=== PATIENT | female | born 1960 | race Caucasian/White ===

== ENCOUNTER 2019-01-21 08:42 | Day surgery (SDC) | payer BC ==
[2019-01-21 11:08] LABS: Performing Lab VERACYTE; Test Name FNA
== END 2019-01-21 22:37 | disposition home or self-care (01) ==
LOC: US 08:42
PROVIDERS: Family Medicine
PROC: BG44ZZZ Ultrasonography of Thyroid Gland (ICD-10-PCS; principal; 2019-01-21)
PROC: 0GBH3ZX Excision of Right Thyroid Gland Lobe, Percutaneous Approach, Diagnostic (ICD-10-PCS; principal; 2019-01-21)
DX: E04.1 Nontoxic single thyroid nodule (principal)
CPT/HCPCS: 10005; 76942

== ENCOUNTER 2019-06-18 14:52 | Emergency (ER) | payer BC ==
[~2019-06-18] VITALS: Ht 175.3 cm; Wt 122.5 kg
[2019-06-18] MEDS ORDERED: IBUP400 PO (15:14)
[2019-06-18] MEDS ORDERED: OMEP20ER PO (15:14)
[2019-06-18] MEDS ORDERED: DULO60 PO (15:14)
[2019-06-18] MEDS ORDERED: Synthroid88 MCG PO (15:14)
[2019-06-18] MEDS ORDERED: CETI5 PO (15:14)
[2019-06-18 15:30] LABS: BASOPHILS ABSOLUTE AUTO 0.04 K/mm3 (0.00-0.23); BASOPHILS PERCENT AUTO 0 % (0-2); EOSINOPHILS ABSOLUTE AUTO 0.08 K/mm3 (0.00-0.68); EOSINOPHILS PERCENT AUTO 1 % (0-6); Hematocrit 39.2 % (33.0-51.0); Hemoglobin 12.6 g/dL (11.5-16.0); IMMATURE GRAN ABSOLUTE AUTO 0.03 K/mm3 (0.00-0.10); IMMATURE GRAN PERCENT AUTO 0 % (0-1); LYMPHOCYTES ABSOLUTE AUTO 1.07 K/mm3 (0.84-5.20); LYMPHOCYTES PERCENT AUTO 12 % (21-46); MONOCYTES ABSOLUTE AUTO 0.44 K/mm3 (0.16-1.47); MONOCYTES PERCENT AUTO 5 % (4-13); Mean Corpuscular HGB Conc 32.1 g/dL (31.5-36.5); Mean Corpuscular Volume 87 fL (80-100); Mean Platelet Volume 9.6 fL (9.1-12.4); NEUTROPHILS ABSOLUTE AUTO 7.48 K/mm3 (1.96-9.15); NEUTROPHILS PERCENT AUTO 82 % (41-73); Platelet Count 193 K/mm3 (150-400); RDW Coefficient Variation 12.1 % (11.7-14.2); RDW Standard Deviation 38.5 fL (35.1-46.3); White Blood Cell Count 9.14 K/mm3 (4.00-11.30)
[2019-06-18 16:07] LABS: Alanine Aminotransfer (ALT/SGP 33 U/L (12-78); Albumin, Blood 4.4 g/dL (3.4-5.0); Alk Phos 70 U/L (50-136); Anion Gap 8 mmol/L (6-16); Aspartate Aminotrans (AST/SGOT 20 U/L (12-37); Bilirubin, Total 0.5 mg/dL (0.1-1.0); Blood Urea Nitrogen 12 mg/dL (8-24); Bun/Creatinine Ratio 21.9 (12.0-20.0); CO2, Blood 27 mmol/L (21-32); Calcium, Blood 8.9 mg/dL (8.5-10.1); Chloride, Blood 104 mmol/L (98-108); Creatinine, Blood 0.55 mg/dL (0.40-1.00); Globulin, Blood 4.3 g/dL (2.2-4.0); Glomerular Filtration Rate >60 (60-); Glucose, Blood 141 mg/dL (70-99); Potassium, Blood 3.5 mmol/L (3.5-5.5); Sodium, Blood 139 mmol/L (136-145); Total Protein, Blood 8.7 g/dL (6.4-8.2)
[2019-06-18] MEDS ORDERED: Ativan0.5 MG PO (17:14)
[2019-06-18] MEDS ORDERED: Motion Sickness25 M1 PO (17:14)
[2019-06-18] MEDS ORDERED: ONDA4ODT MM (17:14)
== END 2019-06-18 17:22 | disposition home or self-care (01) ==
LOC: ER 14:52
PROVIDERS: Internal Medicine
DX: H81.10 Benign paroxysmal vertigo, unspecified ear (principal); Z88.0 Allergy status to penicillin; Z79.899 Other long term (current) drug therapy
CPT/HCPCS: 36415; 70450; 80053; 85025; 93005; 93010; 96374; 96375; 99284-25; J2060; J2405

== ENCOUNTER → 2022-05-31 | Outpatient (CLI) | payer OTHER ==
[~2022-05-31] MED LIST: ASPI325 PO; Ativan0.5 MG PO; CETI5 PO; DULO60 PO; Flonase 0.05% N16 GM; HYDR1TAB94 PO; IBUP400 PO; LEVFLO500 PO; LEVSOD100 PO; LOSA50 PO; Motion Sickness25 M1 PO; OMEP20ER PO; ONDA4ODT MM; Synthroid88 MCG PO; TRAM50 PO
[2022-06-05 15:08] LABS: HPV 16 Negative (Negative); HPV 18 Negative (Negative); HPV OTHER HR TYPES Positive (Negative)
== END | disposition home or self-care (01) ==
LOC: LAB SHORT 18:39 → LAB 18:39
PROVIDERS: Obstetrics & Gynecology
DX: Z01.419 Encounter for gynecological examination (general) (routine) without abnormal findings (principal)
CPT/HCPCS: 87624; 87625; G0123

== ENCOUNTER → 2023-06-05 | Outpatient (CLI) | payer OTHER ==
[2023-06-06 16:10] LABS: HPV 16 Negative (Negative); HPV 18 Negative (Negative); HPV OTHER HR TYPES Negative (Negative)
== END | disposition home or self-care (01) ==
LOC: LAB SHORT 16:47 → LAB 16:47
PROVIDERS: Obstetrics & Gynecology
DX: Z01.419 Encounter for gynecological examination (general) (routine) without abnormal findings (principal)
CPT/HCPCS: 87624; G0145

== ENCOUNTER 2025-11-22 14:09 | Day surgery (SDC) | payer OTHER ==
[~2025-11-22] VITALS: Ht 172.7 cm; Wt 126.0 kg
[~2025-11-22 14:09] MED LIST changes: +EUTHYROX175 MCG PO; +HYDCHL25 PO; -LEVSOD100 PO
[2025-11-22 14:55] VITALS: BP 154/84
--- NOTE | 2025-11-22 15:19 | NUR ---
Ambulatory in Day Surgery. History, Chart, Medications and Allergies reviewed before start of procedure.Lungs clear T/O to Auscultation. Patient confirms NPO status and agrees with scheduled surgery. Pre-Op teaching done. Pt verbalizes understanding. Patient States Post-Procedure ride home has been arranged.
[2025-11-22] MEDS ORDERED: Midazolam HCL 1 MG/ML 5MLVIAL ONE (15:20)
--- NOTE | 2025-11-22 15:38 | NUR ---
11/22/25 [address] STEWART, SEE ANESTHESIA RECORDS.
[2025-11-22 16:13] VITALS: BP 153/87
--- NOTE | 2025-11-22 16:39 | NUR ---
Patient up to Ambulate independently. Gait steady. Discharge instructions reviewed with patient. Patient verbalizes understanding. Copy given to patient to take home. Discharged via wheelchair to private car for ride home. ALL BELONGINGS RETURNED TO PT.
== END 2025-11-22 23:00 | disposition home or self-care (01) ==
LOC: ORSCMMR 14:09 → ORD 15:30 → ORSCMMR 23:00
PROVIDERS: Family Medicine
PROC: 0DBH8ZX Excision of Cecum, Via Natural or Artificial Opening Endoscopic, Diagnostic (ICD-10-PCS; principal; 2025-11-22 15:30)
DX: K52.9 Noninfective gastroenteritis and colitis, unspecified (principal); D12.0 Benign neoplasm of cecum; I10 Essential (primary) hypertension; E78.5 Hyperlipidemia, unspecified; G47.33 Obstructive sleep apnea (adult) (pediatric); Z87.891 Personal history of nicotine dependence; E11.9 Type 2 diabetes mellitus without complications; E66.01 Morbid (severe) obesity due to excess calories; Z68.41 Body mass index [BMI] 40.0-44.9, adult; F32.A Depression, unspecified; E03.9 Hypothyroidism, unspecified; Z79.899 Other long term (current) drug therapy; Z79.82 Long term (current) use of aspirin
CPT/HCPCS: 88305; J2250; J2704; J7120